=== PATIENT | female | born 1960 | race Caucasian/White ===

== ENCOUNTER → 2018-06-27 | Outpatient (CLI) | payer OTHER | END | disposition home or self-care (01) | LOC: CVU 10:54 | PROVIDERS: ATTEND Internal Medicine Cardiovascular Disease | DX: Z13.6 Encounter for screening for cardiovascular disorders (principal); I08.0 Rheumatic disorders of both mitral and aortic valves; I10 Essential (primary) hypertension; E78.5 Hyperlipidemia, unspecified | CPT/HCPCS: 93306 ==

== ENCOUNTER 2019-11-28 15:12 | Inpatient (IN) | payer OTHER ==
[~2019-11-28] VITALS: Ht 157.5 cm; Wt 64.0 kg
--- NOTE | 2019-11-28 15:29 | NUR ---
Transfer from [facility] where she was diagnosed with acute renal failure. C/O N/V x 4 days upon arrival to [facility] ED, but denies all symptoms at this time. NAD. VSS. Very midly hypotensive and tachycardic. MD at bedside. Will continue to monitor.
[2019-11-28] MEDS ORDERED: SODIUM CHLORIDE 0.9% 1,000 ML IV ONE ×2 (15:43→18:00)
--- NOTE | 2019-11-28 16:30 | NUR ---
Resting in [facility]. No needs.
[2019-11-28] MEDS ORDERED: ACETAMINOPHEN 325 MG TABLET PO PRN (17:00)
[2019-11-28] MEDS ORDERED: ONDANSETRON ODT 4 MG PO PRN (17:00)
[2019-11-28] MEDS ORDERED: ONDANSETRON 2MG/ML, 2ML IVPush PRN (17:00)
--- NOTE | 2019-11-28 17:23 | NUR ---
Patient voided 75 mL clear yellow urine. Bladder scan = 22 mL.
--- NOTE | 2019-11-28 17:28 | NUR ---
Report called. Ready for transfer.
[2019-11-28] MEDS ORDERED: NS + 20MEQ KCL 1,000 ML IV SCH (17:30)
[2019-11-28] MEDS ORDERED: LISI-170 PO (17:31)
[2019-11-28] MEDS ORDERED: ATOR40TA78 PO (17:31)
[2019-11-28] MEDS ORDERED: MESA1.2T PO (17:31)
[2019-11-28 17:48] VITALS: BP 95/59
[2019-11-28] MEDS ORDERED: SODIUM CHLORIDE FLUSH 10ML SYR IVF PRN (18:00)
[2019-11-28] MEDS: HEPARIN 5,000 UNITS/ML, 1ML SQ SCH (18:27)
[2019-11-28] MEDS: LACTATED RINGERS 1,000 ML IV SCH (18:27)
[2019-11-28 18:58] LABS: ALBUMIN 2.7 g/dL (3.4-5.0); ANION GAP 14 mmol/L (5-15); CALCIUM 7.5 mg/dL (8.5-10.1); CHLORIDE 107 mmol/L (98-107); CREATININE 4.69 mg/dL (0.55-1.02)
[2019-11-28 20:00] VITALS: BP 95/59
[2019-11-28] MEDS ORDERED: ATORVASTATIN 40 MG TABLET PO SCH (21:00)
[2019-11-29 00:24] VITALS: BP 97/61
[2019-11-29] MEDS: HEPARIN 5,000 UNITS/ML, 1ML SQ SCH ×3 (01:01→17:35)
[2019-11-29] MEDS: LACTATED RINGERS 1,000 ML IV SCH (01:05)
[2019-11-29 05:27] LABS: BASOPHILS # (AUTO) 0.04 x10^3/uL (0-0.1); BASOPHILS % (AUTO) 1 % (0-1); EOSINOPHILS % (AUTO) 1 % (1-7); LYMPHOCYTES # (AUTO) 2.55 x10^3/uL (1-3.4); LYMPHOCYTES % (AUTO) 37 % (22-44); MD NO; MEAN CORPUSCULAR HEMOGLOBIN 30.6 pg (27.0-34.8); MEAN CORPUSCULAR HGB CONC 33.7 g/dL (32.4-35.8); MEAN CORPUSCULAR VOLUME 90.9 fL (80-100); MEAN PLATELET VOLUME 9.5 fL (7.4-10.4); MONOCYTES # (AUTO) 0.67 x10^3/uL (0.2-0.8); MONOCYTES % (AUTO) 10 % (2-9); NEUTROPHILS # (AUTO) 3.62 x10^3/uL (1.8-6.8); NEUTROPHILS % (AUTO) 52 % (42-75); PLATELET COUNT 300 x10^3/uL (130-400); RED BLOOD COUNT 4.46 x10^6/uL (3.82-5.3); RED CELL DISTRIBUTION WIDTH 13.2 % (9.6-15.2)
[2019-11-29 05:43] LABS: CHLORIDE 109 mmol/L (98-107)
[2019-11-29 08:18] VITALS: BP 99/66
[2019-11-29 09:04] LABS: ALANINE AMINOTRANSFERASE 15 U/L (12-78); ALBUMIN 2.4 g/dL (3.4-5.0); ALKALINE PHOSPHATASE 63 U/L (45-117); ANION GAP 11 mmol/L (5-15); BILIRUBIN,TOTAL 0.3 mg/dL (0.2-1.0); CALCIUM 7.8 mg/dL (8.5-10.1); CREATININE 2.62 mg/dL (0.55-1.02); TOTAL PROTEIN 5.7 g/dL (6.4-8.2)
[2019-11-29] MEDS ORDERED: POTASSIUM CHLORIDE 40 MEQ in SODIUM CHLORIDE 0.9% 500 ML IV ONE (09:30)
[2019-11-29] MEDS: POTASSIUM CHLORIDE 20 MEQ TAB.ER.PRT PO SCH ×2 (10:04→17:00)
[2019-11-29 13:59] VITALS: BP 106/71
[2019-11-29 15:26] LABS: ANION GAP 8 mmol/L (5-15); CALCIUM 8.1 mg/dL (8.5-10.1); CHLORIDE 112 mmol/L (98-107); CREATININE 1.39 mg/dL (0.55-1.02)
== END 2019-11-29 19:06 | disposition home or self-care (01) | DRG 683 ==
LOC: ED 16:41 → SUATTDRO 16:46 → EDIP 16:54 → 4EST 17:43
PROVIDERS: ADMIT Family Medicine; ATTEND Family Medicine
DX: N17.9 Acute kidney failure, unspecified (principal); E87.2 Acidosis; E87.1 Hypo-osmolality and hyponatremia; K51.90 Ulcerative colitis, unspecified, without complications; R56.9 Unspecified convulsions; E78.5 Hyperlipidemia, unspecified; I10 Essential (primary) hypertension; R79.89 Other specified abnormal findings of blood chemistry; I95.9 Hypotension, unspecified; E87.6 Hypokalemia; E86.0 Dehydration; E86.9 Volume depletion, unspecified; W18.39XA Other fall on same level, initial encounter; Z88.2 Allergy status to sulfonamides; Y93.89 Activity, other specified; Y92.89 Other specified places as the place of occurrence of the external cause; Y99.8 Other external cause status; Z79.899 Other long term (current) drug therapy
CPT/HCPCS: 36415; 76770; 80048; 80053; 80069; 82570; 83036; 83735; 84300; 85025; 96360; G0378; J1644; J3480; J7030; J7040; J7120